=== PATIENT | male | born 1975 | race Caucasian/White ===

== ENCOUNTER 2017-12-25 15:38 | Emergency (ER) | payer OTHER ==
[~2017-12-25] VITALS: Ht 180.3 cm; Wt 72.6 kg
[2017-12-25 15:42] VITALS: Ht 180.3 cm; Wt 72.6 kg
[2017-12-25 16:13] VITALS: BP 130/98
== END 2017-12-25 16:13 | disposition other institution (70) ==
LOC: ED 15:38
DX: S00.212A Abrasion of left eyelid and periocular area, initial encounter (principal); S50.312A Abrasion of left elbow, initial encounter; W22.8XXA Striking against or struck by other objects, initial encounter; Y93.89 Activity, other specified; Y92.89 Other specified places as the place of occurrence of the external cause; Y99.8 Other external cause status

== ENCOUNTER 2020-04-12 14:46 | Emergency (ER) | payer OTHER ==
[~2020-04-12] VITALS: Ht 180.3 cm; Wt 74.8 kg
[2020-04-12 14:55] VITALS: Ht 180.3 cm; Wt 74.8 kg
[2020-04-12 16:38] VITALS: BP 157/108
== END 2020-04-12 16:41 | disposition other institution (70) ==
LOC: ED 14:46
DX: F10.129 Alcohol abuse with intoxication, unspecified (principal); F12.10 Cannabis abuse, uncomplicated; I10 Essential (primary) hypertension

== ENCOUNTER 2020-04-12 14:46 | Emergency (ER) | payer OTHER | END 2020-04-12 16:41 | disposition other institution (70) | LOC: ED 14:46 | DX: Z02.89 Encounter for other administrative examinations (principal) ==